=== PATIENT | female | born 1960 | race African-American/Black ===

== ENCOUNTER 2018-06-10 16:39 | Emergency (ER) | payer MEDICARE ==
[2018-06-10] MEDS: HYDROCODONE/APAP (5/325) TAB PO (18:21)
== END 2018-06-10 18:39 | disposition home or self-care (01) ==
LOC: FTE 16:39
DX: L03.115 Cellulitis of right lower limb (principal); E11.9 Type 2 diabetes mellitus without complications; I10 Essential (primary) hypertension; J44.9 Chronic obstructive pulmonary disease, unspecified; Z79.4 Long term (current) use of insulin; Z79.82 Long term (current) use of aspirin; Z87.891 Personal history of nicotine dependence
CPT/HCPCS: 99283

== ENCOUNTER 2018-06-12 09:44 | Emergency (ER) | payer MEDICARE ==
[2018-06-12] MEDS: LIDOCAINE 4% CR TOP (11:18)
[2018-06-12] MEDS: MUPIROCIN 2% 22 GM OINT TOP (12:50)
[2018-06-12] MEDS: morphine LIQ (10 MG/5 ML) CUP PO (12:50)
== END 2018-06-12 13:20 | disposition home or self-care (01) ==
LOC: FTE 09:44
DX: L02.415 Cutaneous abscess of right lower limb (principal); I10 Essential (primary) hypertension; J44.9 Chronic obstructive pulmonary disease, unspecified; I25.10 Atherosclerotic heart disease of native coronary artery without angina pectoris; E11.9 Type 2 diabetes mellitus without complications; Z79.4 Long term (current) use of insulin; Z79.82 Long term (current) use of aspirin; Z87.891 Personal history of nicotine dependence
CPT/HCPCS: 10060; 99283-25

== ENCOUNTER 2018-06-16 15:40 | Emergency (ER) | payer MEDICARE | END 2018-06-16 18:11 | disposition home or self-care (01) | LOC: FTE 15:40 | DX: L02.416 Cutaneous abscess of left lower limb (principal); F17.210 Nicotine dependence, cigarettes, uncomplicated; I10 Essential (primary) hypertension; E11.9 Type 2 diabetes mellitus without complications; I25.10 Atherosclerotic heart disease of native coronary artery without angina pectoris; J44.9 Chronic obstructive pulmonary disease, unspecified; Z79.4 Long term (current) use of insulin; Z79.82 Long term (current) use of aspirin | CPT/HCPCS: 99281 ==